=== PATIENT | male | born 1955 | race Two or more races ===

== ENCOUNTER 2024-11-09 12:19 | Emergency (ER) | payer OTHER ==
[~2024-11-09] VITALS: Ht 167.6 cm; Wt 50.8 kg
--- NOTE | 2024-11-09 14:11 | ED.PDOC ---
GI ASSESSMENT HPI Comments This is a 69-year-old male with past medical history of colitis came to the hospital due to abdominal pain for 6 weeks. He described the pain as sharp/discomfort, 05/10 in intensity, constant, with no clear exacerbating or relieving factor. He also reports of constipation (last bowel movement was 6 days back, and past small amount of liquids stool), nausea, lightheadedness, shortness of breaths and bloating. For constipation, he has taken stool softener at home 3 days back but during health. Per patient, he was admitted 5 weeks back due to same symptoms and was diagnosed colitis, had managed with antibiotic and steroid. He also had same episode 2 years back, underwent colonoscopy (per patient it was normal). PSHx: Hernia repair 10 years back Home medication: Does not take any medicine at home Social history: Denies smoking, alcohol or any other drug use Chief Complaint: Abdominal Pain Time Seen by MD: 13:46 Allergies: Coded Allergies: NO KNOWN ALLERGIES (Unverified , 11/09/24) Information Source: Patient Mode of Arrival: Ambulatory Prehospital treatment: 12 Lead EKG Past Medical History Past Medical History (Other): Colitis Surgical History: Hernia Repair Constitutional: reports: fatigue EENTM: denies: blurred vision, double vision, ear bleeding, ear discharge, ear drainage, ear pain, ear ringing, eye pain, eye redness, hearing loss, mouth pain, mouth swelling, nasal discharge, nose bleeding, nose congestion, nose pain, photophobia, tearing, throat pain, throat swelling, voice changes, others Respiratory: reports: shortness of breath; denies: cough, hemoptysis, orthopnea, SOB at rest, SOB with excertion, stridor, wheezing, others Cardiovascular: denies: chest pain, dizzy spells, diaphoresis, Dyspnea on exertion, edema, irregular heart beat, left arm pain, lightheadedness, palpitations, PND, syncope, others Gastrointestinal: reports: abdominal pain, constipated, nausea, poor appetite; denies: abdomen distended, blood streaked bowels, diarrhea, dysphagia, difficulty swallowing, hematemesis, melena, poor fluid intake, rectal bleeding, rectal pain, vomiting, others Genitourinary: denies: burning, dysuria, flank pain, frequency, hematuria, incontinence, penile discharge, penile sore, pain, testicle pain, testicle swelling, urgency, others Neurological: denies: dizziness, fainting, headache, left sided numbness, left sided weakness, numbness, paresthesia, pre-existing deficit, right sided numbness, right sided weakness, seizure, speech problems, tingling, tremors, weakness, others Musculoskeletal: denies: back pain, gout, joint pain, joint swelling, muscle pain, muscle stiffness, neck pain, others Integumetry: denies: bruises, change in color, change in hair/nails, dryness, laceration, lesions, lumps, rash, wounds, others Allergic/Immunocompromised: denies: Difficulty Healing, Frequent Infections, Hives, Itching, others Hematologic/Lymphatic: denies: anemia, blood clots, easy bleeding, easy bruising, swollen glands, others Endocrine: denies: excessive hunger, excessive sweating, excessive thirst, excessive urination, flushing, intolerance to cold, intolerance to heat, unexplained weight gain, unexplained weight loss, others Psychiatric: denies: anxiety, bipolar disorder, depression, hopeless, panic disorder, schizophrenia, sleepless, suicidal, others Physical Exam General Appearance: Moderate Distress, No Apparent Distress, Normal HEENT: Normal ENT Inspection, Pharynx Normal, TMs Normal Neck: Full Range of Motion, Non-Tender, Normal, Normal Inspection Respiratory: Chest Non-Tender, Lungs Clear, No Accessory Muscle Use, No R espiratory Distress, Normal Breath Sounds Cardiovascular: No Edema, No JVD, No Murmur, No Gallop, Normal Peripheral Pulses, Regular Rate/Rhythm Breast Exam: Deferred Gastrointestinal: Tenderness Genitalia: Deferred Pelvic: Deferred Rectal: Deferred Extremities: No calf tenderness, Normal capillary refill, Normal inspection, Normal range of motion, Non-tender, No pedal edema Neurologic: Alert, ventilating engineer II-XII nml as Tested, No Motor Deficits, Normal Affect, Normal Mood, No Sensory Deficits Cerebellar Function: Normal Reflexes: Normal Skin: Dry, Normal Color, Warm Lymphatic: No Adenopathy EKG EKG : Comments Sinus tachycardia with no significant ST or T-wave changes Was a procedure done? Was a procedure done?: No GI differential Dx Differential Diagnosis: Gastroenteritis X-Ray, Labs, Meds, VS Vital Signs Date Time Temp Pulse Resp B/P (MAP) Pulse Ox O2 Delivery O2 Flow Rate FiO2 11/09/24 15:07 97.6 117 16 105/70 (82) 100 97.6 11/09/24 12:36 110 11/09/24 12:23 97.6 121 17 99/67 99 97.6 Lab Test 11/09/24 14:09 Range/Units White Blood Count 9.5 4.4-10.8 10^3/uL Red Blood Count 4.04 L 4.5-5.90 10^6/uL Hemoglobin 8.4 L 13.5-17.5 g/dL Hematocrit 27.9 L 41.0-53.0 % Mean Corpuscular Volume 69.1 L 80.0-100.0 fL Mean Corpuscular Hemoglobin 20.9 L 28.0-32.0 pg Mean Corpuscular Hemoglobin Concent 30.2 L 32.0-36.0 g/dL Red Cell Distribution Width 20.5 H 11.8-14.3 % Platelet Count 729 H 140-450 10^3/uL Mean Platelet Volume 6.5 L 6.9-10.8 fL Neutrophils (%) (Auto) 66.9 37.0-80.0 % Lymphocytes (%) (Auto) 18.4 10.0-50.0 % Monocytes (%) (Auto) 11.2 0.0-12.0 % Eosinophils (%) (Auto) 2.7 0.0-7.0 % Basophils (%) (Auto) 0.8 0.0-2.0 % Neutrophils # (Auto) 6.4 1.6-8.6 10 ^3/uL Lymphocytes # (Auto) 1.7 0.4-5.4 10 ^3/uL Monocytes # (Auto) 1.1 0-1.3 10 ^3/uL Eosinophils # (Auto) 0.3 0-0.8 10 ^3/uL Basophils # (Auto) 0.1 0-0.2 10 ^3/uL Nucleated Red Blood Cells 0.2 % Platelet Estimate Increa Large Platelets Few Sodium Level 137 136-145 mmol/L Potassium Level 3.8 3.5-5.1 mmol/L Chloride Level 102 98-107 mmol/L Carbon Dioxide Level 24 20-31 mmol/L Anion Gap 11 5-15 Blood Urea Nitrogen 11 9-23 mg/dL Creatinine 1.28 0.700-1.30 mg/dL Glomerular Filtration Rate Calc 61 >90 mL/min BUN/Creatinine Ratio 8.6 L 10.0-20.0 Serum Glucose 102 74-106 mg/dL Calcium Level 8.7 8.7-10.4 mg/dL Total Bilirubin 0.2 0.2-1.0 mg/dL Direct Bilirubin < 0.1 <0.3 mg/dL Aspartate Amino Transferase (AST) 13 13-40 U/L Alanine Aminotransferase (ALT) 9 7-40 U/L Alkaline Phosphatase 99 46-116 U/L Troponin I High Sensitivity < 3 L </=54 ng/L Total Protein 6.5 5.7-8.2 g/dL Albumin 3.8 3.2-4.8 g/dL Lipase 33 12-53 U/L Time of 1ST Reevaluation: 22:00 Reevaluation 1ST: Unchanged Time of 2ND Reevaluation: 15:55 Reevaluation 2ND: Unchanged Patient Education/Counseling: Diagnosis, Treatment, Prognosis, Need For Follow Up, Other Family Education/Counseling: No Family Present Comments CT scan was performed and showed vanc colitis The patient was given IV fluid, moving, ondansetron, and hyoscyamine Patient is still complaining of abdominal pain. The patient is still have nausea Patient is still does not have bowel movement The patient will be admitted for further workup and management in hospital. SEPSIS Sepsis Screen Date sepsis recognized/suspect: Nov 09, 2024 Time Sepsis recognized/suspect: 1224 Recent Procedure: No On Antibiotic Therapy: No Respiratory Rate >20: No Heart Rate >90: No Temp<36 C (96.8 F) or >38.3 C: No SBP <90 or MAP <65 mmHG: No New Acute Mental Status Change: No Is the patient on CPAP, BIPAP,: No Physician Orders Electrocardigram (11/09/24 12:28) Ct Ab Pel Wo Con-No Oral Or Iv (11/09/24 14:11) Vital Signs Date Time Temp Pulse Resp B/P (MAP) Pulse Ox O2 Delivery O2 Flow Rate FiO2 11/09/24 15:07 97.6 117 16 105/70 (82) 100 97.6 11/09/24 12:36 110 11/09/24 12:23 97.6 121 17 99/67 99 97.6 Laboratory Tests Test 11/09/24 14:09 White Blood Count 9.5 10^3/uL (4.4-10.8) Departure 1 Departure Time of Disposition: 16:00 Impression: Primary Impression: Non-specific colitis Additional Impression: Gastroenteritis Disposition: ADMITTED INPATIENT Condition: Guarded Critical Care Note Critical Care Time?: No Stability Stability form required: No Heart Score Heart Score: Heart Score Response (Comments) Value History N/A 0 EKG N/A 0 Age N/A 0 Risk Factors N/A 0 Troponin N/A 0 Total 0 JABIER ALVA RESDIENT Nov 09, 2024 14:11
[2024-11-09 14:25] LABS: Hemoglobin 8.4 g/dL (13.5-17.5); Nucleated Red Blood Cells % 0.2 %
[2024-11-09 14:31] LABS: Hematocrit 27.9 % (41.0-53.0); Mean Corpuscular Hemoglobin 20.9 pg (28.0-32.0); Mean Corpuscular Volume 69.1 fL (80.0-100.0)
[2024-11-09 14:37] LABS: Chloride 102 mmol/L (98-107); Potassium 3.8 mmol/L (3.5-5.1); Sodium 137 mmol/L (136-145)
[2024-11-09 14:38] LABS: Anion Gap 11 (5-15); Calcium 8.7 mg/dL (8.7-10.4); Carbon Dioxide 24 mmol/L (20-31)
[2024-11-09 14:43] LABS: BUN/Creatinine Ratio 8.6 (10.0-20.0); Blood Urea Nitrogen 11 mg/dL (9-23); Glucose 102 mg/dL (74-106)
--- NOTE | 2024-11-09 14:46 | DVH ---
EXAM: CT CT AB PEL WO CON-NO ORAL OR IV INDICATION: Colitis TECHNIQUE: Volumetric multidetector CT images of the abdomen and pelvis were obtained without contras t. All CT scans at this facility use dose modulation, iterative reconstruction, and/or weight based d osing when appropriate to reduce radiation dose to as low as reasonably achievable. COMPARISON: None FINDINGS: [LOWER CHEST]: The partially visualized lung bases are clear without a pleural effusion. The cardiac size is normal without pericardial effusion. [LIVER]: Small hepatic hypoattenuating lesion measuring cephalic cm of the inferior right hepatic lob e. No further specific imaging follow-up required, presuming no known or unknown increased risk of ca ncer above societal norms. [GALLBLADDER AND BILIARY TREE]: No cholelithiasis. [SPLEEN]: Unremarkable. [PANCREAS]: Unremarkable. [ADRENAL GLANDS]: Unremarkable [KIDNEYS]: No hydronephrosis. No nephroureterolithiasis. Benign-appearing cysts of the left inferior kidney. [BLADDER]: Circumferential bladder wall thickening, which may be seen in the setting of acute versus chronic cystitis and correlate with urinalysis. [REPRODUCTIVE ORGANS]: Unremarkable. [BOWEL/MESENTERY]: Stomach is normal. No CT evidence of bowel obstruction. Inflammatory stranding and circumferential thickening of the cecum. Possible lead pipe appearance with decompression of the re mainder of the visualized ascending, transverse, descending colon and sigmoid colon. Associated vascu lar recruitment and trace inflammatory stranding along the descending and sigmoid colon. Overall imag ing finding compatible with long segment diffuse colitis. Normal appendix. [ASCITES]: Absent [LYMPHADENOPATHY]: No pathologically enlarged lymph nodes by CT size criteria [VASCULATURE]: No aneurysmal dilatation. [ABDOMINAL WALL]: Unremarkable. [MUSCULOSKELETAL]: No acute fracture or aggressive focal osseous lesion. Multifocal degenerative christian ge of the visualized spine. IMPRESSION: 1. Diffuse pancolitis (infectious versus inflammatory).
[2024-11-09 15:03] LABS: Albumin 3.8 g/dL (3.2-4.8); Alkaline Phosphatase 99 U/L (46-116); Total Protein 6.5 g/dL (5.7-8.2)
[2024-11-09 15:04] LABS: Alanine Aminotransferase 9 U/L (7-40); Bilirubin, Direct < 0.1 mg/dL (<0.3); Bilirubin, Total 0.2 mg/dL (0.2-1.0)
[2024-11-09 15:14] LABS: Lipase 33 U/L (12-53)
[2024-11-09] MEDS: SODIUM CHLORIDE 0.9% 1,000 ML IV ONE ×2 (17:43→18:34)
[2024-11-09] MEDS: HYOSCYAMINE SULF 0.125 MG ODT TAB PO ONE (17:43)
[2024-11-09] MEDS: ONDANSETRON HCL 4 MG/2 ML VIAL IV ONE (17:44)
[2024-11-09] MEDS: MORPHINE SULFATE INJ 2 MG/ml SYRG IV ONE (17:57)
[2024-11-09] MEDS: methylPREDNISolone SOD SUCC 125 MG/2 ML VL IV ONE (18:32)
[2024-11-09] MEDS ORDERED: PRED20TA2 PO (19:13)
[2024-11-09] MEDS ORDERED: PANT40T PO (19:15)
[2024-11-09] MEDS ORDERED: POLY335015 PO (19:16)
[2024-11-09] MEDS: POLYETHYLENE GLYCOL 17 GM PWDR PO ONE (20:14)
--- NOTE | 2024-11-09 22:01 | DVHDS2 ---
Discharge Summary Date of Admission Date of Discharge: Nov 09, 2024 Labs/Diagnostic Data: Laboratory Results Test 11/09/24 14:09 White Blood Count 9.5 10^3/uL (4.4-10.8) Red Blood Count 4.04 10^6/uL (4.5-5.90) Hemoglobin 8.4 g/dL (13.5-17.5) Hematocrit 27.9 % (41.0-53.0) Mean Corpuscular Volume 69.1 fL (80.0-100.0) Mean Corpuscular Hemoglobin 20.9 pg (28.0-32.0) Mean Corpuscular Hemoglobin Concent 30.2 g/dL (32.0-36.0) Red Cell Distribution Width 20.5 % (11.8-14.3) Platelet Count 729 10^3/uL (140-450) Mean Platelet Volume 6.5 fL (6.9-10.8) Neutrophils (%) (Auto) 66.9 % (37.0-80.0) Lymphocytes (%) (Auto) 18.4 % (10.0-50.0) Monocytes (%) (Auto) 11.2 % (0.0-12.0) Eosinophils (%) (Auto) 2.7 % (0.0-7.0) Basophils (%) (Auto) 0.8 % (0.0-2.0) Neutrophils # (Auto) 6.4 10 ^3/uL (1.6-8.6) Lymphocytes # (Auto) 1.7 10 ^3/uL (0.4-5.4) Monocytes # (Auto) 1.1 10 ^3/uL (0-1.3) Eosinophils # (Auto) 0.3 10 ^3/uL (0-0.8) Basophils # (Auto) 0.1 10 ^3/uL (0-0.2) Nucleated Red Blood Cells 0.2 % Platelet Estimate Increa Large Platelets Few Sodium Level 137 mmol/L (136-145) Potassium Level 3.8 mmol/L (3.5-5.1) Chloride Level 102 mmol/L (98-107) Carbon Dioxide Level 24 mmol/L (20-31) Anion Gap 11 (5-15) Blood Urea Nitrogen 11 mg/dL (9-23) Creatinine 1.28 mg/dL (0.700-1.30) Glomerular Filtration Rate Calc 61 mL/min (>90) BUN/Creatinine Ratio 8.6 (10.0-20.0) Serum Glucose 102 mg/dL (74-106) Calcium Level 8.7 mg/dL (8.7-10.4) Total Bilirubin 0.2 mg/dL (0.2-1.0) Direct Bilirubin < 0.1 mg/dL (<0.3) Aspartate Amino Transferase (AST) 13 U/L (13-40) Alanine Aminotransferase (ALT) 9 U/L (7-40) Alkaline Phosphatase 99 U/L (46-116) Troponin I High Sensitivity < 3 ng/L (</=54) Total Protein 6.5 g/dL (5.7-8.2) Albumin 3.8 g/dL (3.2-4.8) Lipase 33 U/L (12-53) Other Laboratory Tests 11/09/24 14:09 Final Diagnosis/Problems List Ulcerative Colitis Flare Discharge Disposition: Home Discharge Instruct/Medications Diet: See Comment Diet comment: Increase fiber, water, vegetables Activity: No Restrictions, As Tolerated Follow Up/Referral: GI appointment to made stat for Ulcerative colitis flare. Please check phone for calls. Medications: Prednisone 60mg taper Protonix for ulcer prevention Miralax for constipation Scheduled Pantoprazole Sodium Sesquihydr (Pantoprazole Sodium), 40 MG PO DAILY Polyethylene Glycol 3350 (Miralax), 17 GM PO BID Prednisone (Prednisone), 20 MG PO DAILY Discharge Statement: "Patient was advised to return to the ER or call 911 if any headaches, dizziness, shortness of breath, chest pain, abdominal pain, bleeding, fevers, or worsening of medical condition. Patient was counseled about treatment plan, medications, possible side effects, patientverbalized understanding. All questions were answered to the best of my ability. This discharge took greater then 30 minutes in planning, reviewing documentation, counseling the patient, and discussing with other team members." ASSESSMENT ASSESSMENT Assessment Ulcerative Colitis Flare HEATHER KAMINSKI DO Nov 09, 2024 22:01
[2024-11-10 00:12] VITALS: BP 137/69; PULSE 90; RESP 18; TEMP 98.1; O2SAT 97
--- NOTE | 2024-11-10 10:53 | ECG ---
[facility] Test Date: 2024-11-09 Test Time: 12:36:27 Pat Name: CHANTEL OCONNELL Department: [facility] ED Patient ID: [id number] Room: Gender: M Flame Gouger: FAIZAN : 1955 Requested By: ANNALEE PADRON Order Number: [id number] Reading MD: Fredy Alvarado Measurements Intervals [place]helps Rate: 110 P: 60 IN: 136 QRS: 7 QRSD: 87 T: 70 QT: 341 QTc: 462 Interpretive Statements Sinus tachycardia Electronically Signed On 11-10-2024 13:11:47 PDT by Fredy Alvarado Please click the below link to view image of tracing.
== END 2024-11-10 00:11 | disposition home or self-care (01) ==
LOC: ER 12:19
DX: K51.90 Ulcerative colitis, unspecified, without complications (principal); K52.9 Noninfective gastroenteritis and colitis, unspecified; Z98.890 Other specified postprocedural states; Z79.52 Long term (current) use of systemic steroids; Z79.899 Other long term (current) drug therapy
CPT/HCPCS: 36415; 74176; 80048; 80076; 83690; 84484; 85025; 93005; 96361; 96374; 96375; 99285; J2270; J2405; J2919; J7030